=== PATIENT | female | born 1985 | race African-American/Black ===

== ENCOUNTER 2016-07-16 09:10 | Emergency (ER) | payer SELFPAY ==
[~2016-07-16] VITALS: Ht 167.6 cm; Wt 110.0 kg
[~2016-07-16 09:10] MED LIST: AMOXICILLIN500 MG PO; PRENATAL3 PO
[2016-07-16 09:43] LABS: HEMATOCRIT 43.9 % (37.0-47.0); IMMATURE GRANULOCYTES 0.3 % (0.0-1.0); MEAN CELL VOLUME 90.7 fL CALC (80.0-100.0); MEAN CORPUSCULAR HGB CONC 34.2 g/L CALC (32.0-36.0); NEUT# 6.85 thou/uL (2.00-7.15); RED BLOOD COUNT 4.84 mill/uL (4.20-5.60); RED CELL DISTRI WIDTH 13.2 % (11.5-15.5)
[2016-07-16 10:09] LABS: ALKALINE PHOSPHATASE 103 u/l (38-126); ANION GAP 20 (6-22 (CALC)); BILIRUBIN, TOTAL 0.6 mg/dL (0.0-1.4); BUN 7 mg/dL (7-17); BUN/CREATININE RATIO 10 (12-20 (CALC)); CALCIUM 9.4 mg/dL (8.4-10.2); CARBON DIOXIDE 24 mmol/l (22-30); CHLORIDE 104 mmol/l (95-108); CREATININE 0.7 mg/dL (0.5-1.0); GFR > 60 ML/MIN (>=60 (CALC)); GFR FOR AFR.AMER. > 60 ML/MIN (>=60 (CALC)); GLUCOSE 106 mg/dL (65-105); POTASSIUM 3.4 mmol/l (3.5-5.1); SGOT/AST 28 u/l (14-36); SGPT/ALT 23 u/l (9-52); SODIUM 144 mmol/l (137-146); TOTAL PROTEIN 8.9 g/dL (6.3-8.2)
[2016-07-16] MEDS ORDERED: ZESTRIL10 M1 PO (10:48)
[2016-07-16] MEDS ORDERED: TRAMADOL HYDROC50 MG PO (10:48)
[2016-07-16 10:55] VITALS: BP 133/82
== END 2016-07-16 11:39 | disposition home or self-care (01) | DRG 103 ==
LOC: ED 09:10
PROVIDERS: Emergency Medicine
DX: R51 Headache (principal); I10 Essential (primary) hypertension

== ENCOUNTER 2016-10-30 15:02 | Emergency (ER) | payer OTHER ==
[~2016-10-30] VITALS: Ht 167.6 cm; Wt 106.0 kg
[~2016-10-30 15:02] MED LIST changes: +TRAMADOL HYDROC50 MG PO; +ZESTRIL10 M1 PO
[2016-10-30] MEDS ORDERED: TRAMADOL HYDROC50 MG PO (15:34)
[2016-10-30] MEDS ORDERED: MOTRIN800 MG PO (15:34)
[2016-10-30 15:55] VITALS: BP 144/74
== END 2016-10-30 15:55 | disposition home or self-care (01) | DRG 552 ==
LOC: ED 15:02
DX: M54.32 Sciatica, left side (principal); F17.210 Nicotine dependence, cigarettes, uncomplicated